=== PATIENT | female | born 2000 | race Two or more races ===

== ENCOUNTER 2019-11-17 20:55 | Emergency (ER) | payer BC ==
[~2019-11-17] VITALS: Ht 167.6 cm; Wt 69.0 kg
[2019-11-17] MEDS ORDERED: DEXAMETHASONE 10 MG/ML VIAL IM STA (23:26)
[2019-11-17] MEDS ORDERED: KETOROLAC 60MG/2ML VIAL IM STA (23:26)
[2019-11-17] MEDS ORDERED: PENICILLIN G BENZATHINE 1,200,000 UNITS/2ML SYR IM ONE (23:30)
[2019-11-18 00:23] VITALS: BP 121/81
== END 2019-11-18 00:33 | disposition home or self-care (01) ==
LOC: ER 20:55
DX: J03.90 Acute tonsillitis, unspecified (principal)
CPT/HCPCS: 81025; 87070; 87430; 96372; 99283; J0561; J1100; J1885

== ENCOUNTER 2023-10-18 | Emergency (ER) | payer BC, MEDICAID ==
[~2023-10-18] VITALS: Ht 172.7 cm; Wt 55.0 kg
[2023-10-18 00:27] VITALS: BP 128/74; PULSE 92; RESP 16; TEMP 97.4; O2SAT 98
[2023-10-18] MEDS ORDERED: FLUORESCEIN SODIUM 1MG/STRIP LEFTEYE ONE (05:45)
[2023-10-18] MEDS ORDERED: TETRACAINE 0.5% OPHTH DROPS 4ML LEFTEYE ONE (05:45)
[2023-10-18] MEDS ORDERED: ERYT1OIN6 EACHEYE (06:08)
== END 2023-10-18 06:47 | disposition home or self-care (01) ==
LOC: ER
DX: H10.9 Unspecified conjunctivitis (principal)
CPT/HCPCS: 99283